=== PATIENT | female | born 1975 | race Caucasian/White ===

== ENCOUNTER 2019-09-10 14:10 | Emergency (ER) | payer OTHER, MEDICAID ==
[~2019-09-10] VITALS: Ht 165.1 cm; Wt 113.4 kg
[2019-09-10 14:32] VITALS: Ht 165.1 cm; Wt 113.4 kg
[2019-09-10 15:09] LABS: BASOPHIL % 0.3 % (0-2); PLATELET COUNT 309 x10^3mcL (130-400); RED CELL DISTRIBUTION WIDTH 13.4 % (11.5-14.5)
[2019-09-10 15:37] LABS: ALKALINE PHOSPHATASE 168 U/L (46-116); ALT/SGPT 221 U/L (14-59); AST/SGOT 163 U/L (15-37); BILIRUBIN TOTAL 0.18 mg/dL (0.20-1.00); CALCIUM 8.5 mg/dL (8.5-10.1); CARBON DIOXIDE 27.9 mmol/L (21-32); CHLORIDE SERUM 104 mmol/L (98-107); CREATININE SERUM 0.9 mg/dL (0.6-1.0); GFR1 > 60 mL/min; GLUCOSE SERUM 261 mg/dL (74-106); LIPASE 111 IU/L (73-393); POTASSIUM SERUM 3.6 mmol/L (3.5-5.1); SODIUM SERUM 138 mmol/L (136-145)
[2019-09-10 15:38] LABS: ALBUMIN 3.2 g/dL (3.4-5.0)
[2019-09-10 17:00] LABS: IRON 29 ug/dL (50-170); TOTAL IRON BINDING CAPACITY 341 ug/dL (250-450)
[2019-09-10 19:24] VITALS: BP 122/74
== END 2019-09-10 19:24 | disposition home or self-care (01) ==
LOC: ED 14:10
PROVIDERS: Emergency Medicine
DX: S20.212A Contusion of left front wall of thorax, initial encounter (principal); X58.XXXA Exposure to other specified factors, initial encounter; Y93.89 Activity, other specified; Y92.89 Other specified places as the place of occurrence of the external cause; Y99.8 Other external cause status
CPT/HCPCS: 36415; 82962